=== PATIENT | male | born 1970 | race American Indian/Alaskan Native ===

== ENCOUNTER 2017-12-07 10:00 | Emergency (ER) | payer OTHER ==
[2017-12-07 10:16] VITALS: RESP 18; TEMP 99.6
[2017-12-07 11:09] LABS: SQUAMOUS EPITHIAL 1 /hpf (0-5); URINE BACTERIA RARE (<OCC); URINE BILIRUBIN NEGATIVE (NEGATIVE); URINE BLOOD 2+ (NEGATIVE); URINE CLARITY Clear (Clear); URINE COLOR Yellow (YELLOW); URINE GLUCOSE (UA) NORMAL (Normal); URINE LEUKOCYTE ESTERASE 1+ Leu/uL (Negative); URINE NITRATE NEGATIVE (NEGATIVE); URINE PROTEIN NEGATIVE (NEGATIVE); URINE UROBILINOGEN NORMAL mg/dL (0.2-1.0)
--- NOTE | 2017-12-07 11:36 | C.PDOC ---
History Of Present Illness HEMATURIA, X 1 PERSIST PENILE PAIN X 4 DAYS. PS WAS URINATING AND VOMITING SIMULTANEOUSLY, FELT SHARP PAIN TIP OF PENIS. +HEMATURIA X 1 NOW RESOLVED. NOW W PERSIST PAIN TIP OF PENIS PRESENT ONLY W URINATION. NO OTHER ASSOC SX. 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 EXAM NAD NONTOXIC NO PENILE SWELLING, DC, DEFORM. NONTEND. REMAINDER NEG Time Seen by Provider: 12/07/17 11:10 Chief Complaint (Nursing): Male Genitourinary History Per: Patient History/Exam Limitations: no limitations Onset/Duration Of Symptoms: Days Past Medical History Reviewed: Historical Data, Nursing Documentation, Vital Signs Vital Signs: Last Vital Signs Temp 99.6 F 12/07/17 10:11 Pulse 91 H 12/07/17 10:11 Resp 18 12/07/17 10:11 BP 143/77 12/07/17 10:11 Pulse Ox 95 12/07/17 11:44 Family History: States: No Known Family Hx - Social History Hx Alcohol Use: No Hx Substance Use: No - Immunization History Hx Tetanus Toxoid Vaccination: No Hx Influenza Vaccination: No Hx Pneumococcal Vaccination: No Review Of Systems Except As Marked, All Systems Reviewed And Found Negative. Cardiovascular: Negative for: Chest Pain Respiratory: Negative for: Shortness of Breath Gastrointestinal: Positive for: Vomiting. Negative for: Abdominal Pain Genitourinary: Positive for: Hematuria, Penile Pain Neurological: Negative for: Weakness, Numbness Physical Exam - Physical Exam Appears: Non-toxic, No Acute Distress Skin: Warm, Dry, No Rash Head: Atraumatic, Normacephalic Oral Mucosa: Moist Respiratory: Normal Breath Sounds Male Genital: No Testicular Tenderness, No Inguinal Tenderness, Other (No penile swelling. No discharge. No defromity) Extremity: Normal ROM, No Swelling Neurological/Psych: Oriented x3, Normal Speech, Normal Motor ED Course And Treatment O2 Sat by Pulse Oximetry: 95 (RA) Pulse Ox Interpretation: Normal Medical Decision Making Medical Decision Making: PLAN: * Urinalysis Disposition Counseled Patient/Family Regarding: Studies Performed, Diagnosis, Need For Followup, Rx Given - Disposition Referrals: Jyoti Flanagan MD [Staff Provider] - Disposition: HOME/ ROUTINE Disposition Time: 11:38 Condition: GOOD Prescriptions: oxyCODONE/Acetaminophen [Percocet 5/325 mg Tab] 1 ea PO Q6 PRN #10 tab PRN Reason: Pain, Moderate (4-7) Instructions: Muscle Strain (ED) Forms: [facility] ([employer]), Work Excuse - Clinical Impression Clinical Impression: Penile pain, Hematuria - Scribe Statement The provider has reviewed the documentation as recorded by the Scribe Desiree Mena Provider Attestation: All medical record entries made by the Scribe were at my direction and personally dictated by me. I have reviewed the chart and agree that the record accurately reflects my personal performance of the history, physical exam, medical decision making, and the department course for this patient. I have also personally directed, reviewed, and agree with the discharge instructions and disposition.
[2017-12-07 11:55] VITALS: BP 132/84; PULSE 79; O2SAT 98
== END 2017-12-07 11:56 | disposition home or self-care (01) ==
LOC: C.ER 10:00
DX: N48.89 Other specified disorders of penis (principal); R31.9 Hematuria, unspecified